=== PATIENT | female | born 1945 | race Caucasian/White ===

== ENCOUNTER 2017-08-14 10:04 | Emergency (ER) | payer OTHER, MEDICAID ==
[2017-08-14] MEDS ORDERED: NS 1000 ML 1,000 ML ONE ×5 (10:11→12:14)
[2017-08-14 10:18] VITALS: BMI 25.6
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
[2017-08-14 10:31] LABS: BILIRUBIN,URINE NEGATIVE (NEGATIVE); BLOOD/HEMOGLOBIN,URINE 3+ (NEGATIVE); GLUCOSE, URINE NEGATIVE (NEGATIVE); KETONES,URINE 1+ (NEGATIVE); LEUKOCYTE ESTERASE ,URINE 2+ (NEGATIVE); NITRITES,URINE POSITIVE (NEGATIVE); PROTEIN,URINE 1+ (NEGATIVE); UROBILINOGEN,URINE NORMAL (NORMAL)
[2017-08-14] MEDS ORDERED: NS 1000 ML 1,000 ML IV ONE ×2 (10:31→11:36)
[2017-08-14 10:34] LABS: APPEARANCE,URINE HAZY (CLEAR); COLOR,URINE YELLOW (YELLOW)
[2017-08-14 10:41] LABS: BACTERIA,URINE 2+ /HPF (NEGATIVE); MUCUS,URINE FEW /HPF (NEGATIVE); SQUAMOUS EPITHELIAL CELL,UR FEW /HPF (NEGATIVE)
[2017-08-14] MEDS ORDERED: MORPHINE SULFATE INJ 4 MG IVP ONE ×2 (10:53→11:48)
[2017-08-14] MEDS ORDERED: MORPHINE SULFATE INJ 4 MG ONE ×2 (10:54→11:48)
[2017-08-14] MEDS ORDERED: STERILE WATER IRRIGATION IR ONE (11:24)
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
[2017-08-14 11:46] LABS: BASOPHILS # (AUTO) 0.1 X10^3/uL (0.0-0.1); BASOPHILS % (AUTO) 0.6 % (0.2-1.0); EOSINOPHILS # (AUTO) 0.2 x10^3/uL (0.0-0.2); EOSINOPHILS % (AUTO) 1.1 % (0.9-2.9); HEMATOCRIT 30.9 % (36.0-47.0); HEMOGLOBIN 10.5 g/dL (12.0-16.0); LYMPHOCYTES # (AUTO) 1.2 X10^3/uL (1.3-2.9); LYMPHOCYTES % (AUTO) 8.3 % (21.0-51.0); MEAN CORPUSCULAR HEMOGLOBIN 33.2 pg (27.0-34.0); MEAN CORPUSCULAR HGB CONC 33.9 g/dL (33.0-35.0); MEAN CORPUSCULAR VOLUME 97.9 fL (80.0-100.0); MEAN PLATELET VOLUME 8.3 fL (7.4-11.0); MONOCYTES # (AUTO) 1.2 x10^3/uL (0.3-0.8); MONOCYTES % (AUTO) 7.9 % (0.0-13.0); NEUTROPHILS # (AUTO) 12.4 x10^3/uL (2.2-4.8); NEUTROPHILS % (AUTO) 82.1 % (42.0-75.0); PLATELET COUNT 204 X10^3/uL (150.0-450.0); RED BLOOD COUNT 3.16 X10^6/uL (3.5-5.4); RED CELL DISTRIBUTION WIDTH 13.5 % (11.6-16.5); WHITE BLOOD COUNT 15.1 X10^3/uL (3.6-10.0)
[2017-08-14 11:56] LABS: ALANINE AMINOTRANSFERASE 18 Units/L (12-78); ALBUMIN 3.1 g/dL (3.4-5.0); ALKALINE PHOSPHATASE 48 Units/L (46-116); ASPARTATE AMINO TRANSFERASE 31 Units/L (15-37); BLOOD UREA NITROGEN 23 mg/dL (7-18); CALCIUM 7.9 mg/dL (8.5-10.1); CARBON DIOXIDE 25.1 mmol/L (21-32); CHLORIDE 106 mmol/L (98-107); COR CA(FOR HYPOALB) 8.6 mg/dL (8.5-10.1); CREATININE 0.66 mg/dL (0.55-1.02); SODIUM 140 mmol/L (136-145); TOTAL PROTEIN 5.8 g/dL (6.4-8.2); eGFR BLACK RACES > 60 (>60); eGFR NON BLACK RACES > 60 (>60)
[2017-08-14] MEDS ORDERED: ADACEL TDaP IM ONE ×2 (11:56→12:17)
[2017-08-14 12:03] VITALS: BP 192/81
[2017-08-14] MEDS ORDERED: ANCEF VIAL 1 GM 1 GM in NS 100 ML IV 100 ML IV ONE (12:11)
[2017-08-14] MEDS ORDERED: ANCEF VIAL 1 GM ONE (12:16)
[2017-08-14] MEDS ORDERED: NS 100 ML IV + SPIKE MINIBAG* 100 ML IV ONE (12:17)
--- NOTE | 2017-08-14 12:31 | RAD ---
Examination: AP chest History: Central line placement Comparison 09/02/2015 Findings: Normal heart size, grossly clear lungs. Detail limited by backboard artifact. Left subclavi an line Impression: Central line position as noted, no acute features. Reported By:
== END 2017-08-14 12:53 | disposition short-term general hospital (02) ==
LOC: ER 10:04
DX: Z02.0 Encounter for examination for admission to educational institution (principal); S00.11XA Contusion of right eyelid and periocular area, initial encounter; S01.111A Laceration without foreign body of right eyelid and periocular area, initial encounter; V49.9XXA Car occupant (driver) (passenger) injured in unspecified traffic accident, initial encounter
CPT/HCPCS: 36415; 36556; 51702; 70450; 70486; 71045; 71250; 72125; 74176; 80053; 81001; 85025; 86850; 86900; 86901; 87086; 87088; 87186; 96365; 96367; 96374; 96375; 99284; 99285; A4217; A4222; J0690; J2270